=== PATIENT | female | born 1950 | race African-American/Black ===

== ENCOUNTER 2018-04-10 11:51 | Inpatient (IN) | payer BC ==
[~2018-04-10] VITALS: Ht 185.4 cm; Wt 107.0 kg
[2018-04-10] MEDS ORDERED: DONEPEZIL HYDROC5 M3 (15:05)
[2018-04-10] MEDS ORDERED: PHARMASSURE FO0.4 MG (15:05)
[2018-04-10] MEDS ORDERED: AMLODIPINE BES2.5 M1 (15:05)
[2018-04-10] MEDS ORDERED: LOSARTAN POTASS25 M1 (15:05)
[2018-04-10] MEDS ORDERED: TAP5 (15:06)
[2018-04-10] MEDS ORDERED: ISORDIL TITRADOS5 M1 (15:06)
[2018-04-10] MEDS ORDERED: SIMVASTATIN10 M1 (15:07)
[2018-04-10] MEDS ORDERED: CARVEDILOL3.125 M1 (15:07)
[2018-04-10] MEDS ORDERED: XARELTO10 M1 (15:07)
[2018-04-10] MEDS ORDERED: RESTORIL15 MG (15:08)
[2018-04-10] MEDS ORDERED: MELOXICAM7.5 M1 (15:08)
[2018-04-10] MEDS ORDERED: LISINOPRIL2.5 MG (15:11)
[2018-04-10] MEDS ORDERED: NOR10T (15:12)
[2018-04-10] MEDS ORDERED: GOOD SENSE OMEP20 MG (15:12)
[2018-04-10 15:49] LABS: MAGNESIUM 1.8 mg/dL (1.8-2.4); PHOSPHOROUS 3.8 mg/dL (2.5-4.9)
[2018-04-10 15:56] LABS: T3 TOTAL 1.23 ng/mL
[2018-04-10 16:00] LABS: FREE T4 1.25 ng/dL (0.76-1.46); FREE THYROXINE INDEX 3.2 ug/dL (1.4-4.5); T4(THYROXINE) 10.2 ug/dL (4.7-13.3)
[2018-04-10 16:03] LABS: CHOLESTEROL/HDL RATIO 2.7
[2018-04-10 16:22] VITALS: BP 217/96
[2018-04-10 17:03] LABS: BASOPHIL % 0.3 % (0-2); PLATELET COUNT 327 x10^3mcL (130-400); RED CELL DISTRIBUTION WIDTH 14.4 % (11.5-14.5)
[2018-04-10 17:07] LABS: CALCIUM 9.3 mg/dL (8.5-10.1); CARBON DIOXIDE 21.8 mmol/L (21-32); POTASSIUM SERUM 3.8 mmol/L (3.5-5.1)
[2018-04-10 17:13] VITALS: BP 174/79
[2018-04-10 19:18] LABS: UA SPECIFIC GRAVITY <=1.005 (1.005-1.035); microscopic required? YES; urine erythrocyte TRACE (NEGATIVE)
[2018-04-10 19:31] LABS: AMPHETAMINE QUAL UR NONE DETECTED (See below)
[2018-04-11 04:41] VITALS: BP 133/65
[2018-04-11 06:39] LABS: BASOPHIL % 0.4 % (0-2); PLATELET COUNT 267 x10^3mcL (130-400)
[2018-04-11 07:19] LABS: CARBON DIOXIDE 28.7 mmol/L (21-32); CREATININE SERUM 1.2 mg/dL (0.6-1.0); PHOSPHOROUS 4.8 mg/dL (2.5-4.9); POTASSIUM SERUM 5.4 mmol/L (3.5-5.1)
[2018-04-11 07:20] LABS: RED CELL DISTRIBUTION WIDTH 14.9 % (11.5-14.5)
[2018-04-11 09:35] VITALS: BP 138/73
[2018-04-11 13:02] VITALS: BP 161/69
[2018-04-11 17:22] VITALS: BP 144/73
[2018-04-11 21:10] VITALS: BP 147/65
[2018-04-12 05:04] VITALS: BP 144/70
[2018-04-12 06:02] LABS: BASOPHIL % 0.5 % (0-2); PLATELET COUNT 263 x10^3mcL (130-400)
[2018-04-12 06:19] LABS: CALCIUM 8.6 mg/dL (8.5-10.1); CREATININE SERUM 1.1 mg/dL (0.6-1.0)
[2018-04-12 06:53] LABS: RED CELL DISTRIBUTION WIDTH 14.6 % (11.5-14.5)
[2018-04-12 11:09] VITALS: BP 151/65
[2018-04-12 18:43] VITALS: BP 135/50
[2018-04-12 21:50] VITALS: BP 133/48
[2018-04-13 05:40] VITALS: BP 120/60
[2018-04-13 07:27] LABS: BASOPHIL % 0.5 % (0-2); PLATELET COUNT 243 x10^3mcL (130-400)
[2018-04-13 07:33] LABS: RED CELL DISTRIBUTION WIDTH 14.7 % (11.5-14.5)
[2018-04-13 08:12] LABS: CALCIUM 8.4 mg/dL (8.5-10.1); CARBON DIOXIDE 28.4 mmol/L (21-32); CREATININE SERUM 1.1 mg/dL (0.6-1.0); PHOSPHOROUS 4.7 mg/dL (2.5-4.9)
[2018-04-13 09:34] VITALS: BP 124/45
[2018-04-13 17:05] VITALS: BP 155/53
[2018-04-13 22:11] VITALS: BP 169/70
[2018-04-13 23:39] VITALS: BP 159/62
[2018-04-14 06:14] VITALS: BP 144/54
[2018-04-14 06:42] LABS: BASOPHIL % 0.5 % (0-2); PLATELET COUNT 252 x10^3mcL (130-400); RED CELL DISTRIBUTION WIDTH 14.8 % (11.5-14.5)
[2018-04-14 06:48] LABS: CALCIUM 9.1 mg/dL (8.5-10.1); CARBON DIOXIDE 32.3 mmol/L (21-32); CREATININE SERUM 1.2 mg/dL (0.6-1.0); POTASSIUM SERUM 4.4 mmol/L (3.5-5.1)
[2018-04-14 09:44] VITALS: BP 157/72
[2018-04-14 13:07] VITALS: BP 157/72
[2018-04-14] MEDS ORDERED: ZES20 PO (13:44)
[2018-04-14] MEDS ORDERED: PRI20 PO (13:44)
[2018-04-14] MEDS ORDERED: COL100 PO (13:45)
[2018-04-14] MEDS ORDERED: NOR10T PO (13:45)
[2018-04-14 14:09] VITALS: BP 92/63
[2018-04-14 21:23] VITALS: BP 173/66
[2018-04-14 22:30] VITALS: BP 168/67
== END 2018-04-15 00:43 | DRG 602 ==
LOC: ED 11:51 → MU 15:01
PROVIDERS: General Practice; Internal Medicine; Podiatrist
PROC: 0H9MXZZ Drainage of Right Foot Skin, External Approach (ICD-10-PCS; principal; 2018-04-10 18:30)
DX: L03.115 Cellulitis of right lower limb (principal); N17.0 Acute kidney failure with tubular necrosis; S82.64 Nondisplaced fracture of lateral malleolus of right fibula; I12.9 Hypertensive chronic kidney disease with stage 1 through stage 4 chronic kidney disease, or unspecified chronic kidney disease; N18.3 Chronic kidney disease, stage 3 (moderate); S91.011A Laceration without foreign body, right ankle, initial encounter; E78.5 Hyperlipidemia, unspecified; W17.89XA Other fall from one level to another, initial encounter; Y93.89 Activity, other specified; Y92.89 Other specified places as the place of occurrence of the external cause; W01.0XXA Fall on same level from slipping, tripping and stumbling without subsequent striking against object, initial encounter; Y92.9 Unspecified place or not applicable
CPT/HCPCS: 76001; 83880; 84439; 90715; 97110-GP; 97116-GP; 97530-GP; J0690; J2060; J2270; J2405; J2543; J2704; J3010; J3370; J3490; J7030; J7120; Q0092